=== PATIENT | female | born 1990 | race Caucasian/White ===

== ENCOUNTER → 2023-10-05 | Outpatient (CLI) | payer OTHER | END | disposition home or self-care (01) | LOC: NST 09:07 | PROVIDERS: ATTEND Obstetrics & Gynecology Maternal & Fetal Medicine | DX: Z34.83 Encounter for supervision of other normal pregnancy, third trimester (principal) ==

== ENCOUNTER 2023-10-20 15:30 | Outpatient (CLI) | payer OTHER | END 2023-10-20 17:11 | disposition home or self-care (01) | LOC: NST 15:30 | PROVIDERS: ATTEND Obstetrics & Gynecology | DX: Z34.83 Encounter for supervision of other normal pregnancy, third trimester (principal) ==

== ENCOUNTER 2023-10-26 15:44 | Outpatient (CLI) | payer OTHER | END 2023-10-26 16:55 | disposition home or self-care (01) | LOC: NST 15:44 | PROVIDERS: ATTEND Obstetrics & Gynecology Gynecology | DX: Z34.83 Encounter for supervision of other normal pregnancy, third trimester (principal) ==